=== PATIENT | male | born 1970 | race Caucasian/White ===

== ENCOUNTER → 2017-10-31 | Outpatient (CLI) | payer BC | END | disposition home or self-care (01) | LOC: LAB SHORT 07:35 → PLD 07:35 | DX: L28.0 Lichen simplex chronicus (principal) | CPT/HCPCS: 88305 ==

== ENCOUNTER 2020-04-08 09:20 | Day surgery (SDC) | payer BC ==
[~2020-04-08] VITALS: Ht 177.8 cm; Wt 129.4 kg
[~2020-04-08 09:20] MED LIST: Lisinopril-Hct1 EAC4 PO
--- NOTE | 2020-04-08 09:55 | NUR ---
04/08/20 0955 Cora Mcmullen D 1 IV MISS IN RH BY PARIS VALVE 1 GOOD IV IV RAC BY PARIS PT TOW
== END 2020-04-08 11:14 | disposition home or self-care (01) ==
LOC: ORSCSDS 09:20
PROVIDERS: Internal Medicine Gastroenterology
PROC: 0DJD8ZZ Inspection of Lower Intestinal Tract, Via Natural or Artificial Opening Endoscopic (ICD-10-PCS; principal; 2020-04-08 10:30)
DX: Z12.11 Encounter for screening for malignant neoplasm of colon (principal); Z87.891 Personal history of nicotine dependence; K21.9 Gastro-esophageal reflux disease without esophagitis; I10 Essential (primary) hypertension; E66.01 Morbid (severe) obesity due to excess calories; Z68.41 Body mass index [BMI] 40.0-44.9, adult; Z79.899 Other long term (current) drug therapy
CPT/HCPCS: J2704; J7120